=== PATIENT | male | born 1990 | race American Indian/Alaskan Native ===

== ENCOUNTER 2021-11-22 11:44 | Emergency (ER) | payer SELFPAY ==
--- NOTE | 2021-11-22 12:04 | Emergency Department Report ---
ED Chest Pain HPI - General Stated Complaint: SOB/CHEST PAIN/LT SIDE NUMBNESS PUI?: Yes Time Seen by Provider: 11/22/21 11:59 Source: patient Mode of arrival: Ambulatory Limitations: No Limitations - History of Present Illness Initial Comments: 31 yo comes to ER co chest pain worse with movement pain is sharp nausea sob no trauma thc only MD Complaint: chest pain Heart Score - HEART Score History: Slightly suspicious EKG: Normal Age: < 45 Risk factors: No known risk factors Troponin: < normal limit HEART Score: 0 - EKG Read Time Time EKG Completed: 12:00 EKG Read Time: 12:00 ED Review of Systems ROS: Stated complaint: SOB/CHEST PAIN/LT SIDE NUMBNESS Other details as noted in HPI Comment: All other systems reviewed and negative ED Past Medical Hx - Past Medical History Previous Medical History?: No - Surgical History Past Surgical History?: Yes - Family History Family history: no significant - Social History Smoking Status: Current Every Day Smoker Substance Use Type: Alcohol, Marijuana ED Physical Exam - General General appearance: alert, in no apparent distress - Head Head exam: Present: atraumatic, normocephalic - Eye Eye exam: Present: normal appearance - ENT ENT exam: Present: mucous membranes moist - Neck Neck exam: Present: normal inspection - Respiratory Respiratory exam: Present: normal lung sounds bilaterally. Absent: respiratory distress - Cardiovascular Cardiovascular Exam: Present: regular rate, normal rhythm. Absent: systolic murmur, diastolic murmur, rubs, gallop - GI/Abdominal GI/Abdominal exam: Present: soft, normal bowel sounds - Rectal Rectal exam: Present: deferred - Extremities Exam Extremities exam: Present: normal inspection - Back Exam Back exam: Present: normal inspection - Neurological Exam Neurological exam: Present: alert, oriented X3 - Psychiatric Psychiatric exam: Present: normal affect, normal mood - Skin Skin exam: Present: warm, dry, intact, normal color. Absent: rash Critical care attestation.: If time is entered above; I have spent that time in minutes in the direct care of this critically ill patient, excluding procedure time. ED Disposition Clinical Impression: Chest pain Disposition: 30 STILL A PATIENT Is pt being admited?: No Does the pt Need Aspirin: No Condition: Stable Instructions: Nonspecific Chest Pain, Adult Time of Disposition: 12:08
[2021-11-22 12:08] VITALS: BP 141/106
[2021-11-22 12:28] LABS: Basophils % (Auto) 0.3 % (0.0-1.8); Eosinophils # (Auto) 0.2 K/mm3 (0.0-0.4); Eosinophils % (Auto) 2.1 % (0.0-4.3); Hematocrit 47.6 % (35.5-45.6); Lymphocytes # (Auto) 1.4 K/mm3 (1.2-5.4); Lymphocytes % (Auto) 17.9 % (13.4-35.0); Mean Corpuscular HGB Conc 34 % (32-34); Mean Corpuscular Volume 90 fl (84-94); Monocytes # (Auto) 0.7 K/mm3 (0.0-0.8); Monocytes % (Auto) 8.5 % (0.0-7.3); Platelet Count 266 K/mm3 (140-440); Red Blood Count 5.26 M/mm3 (3.65-5.03)
[2021-11-22 12:52] LABS: Alanine Aminotransferase 30 units/L (7-56); Albumin 4.8 g/dL (3.9-5); BUN/Creatinine Ratio 12; Blood Urea Nitrogen 14 mg/dL (9-20); Calcium 9.6 mg/dL (8.4-10.2); Hemolysis Index 17
--- NOTE | 2021-11-22 12:56 | XRay Report ---
CHEST 2 VIEWS INDICATION / CLINICAL INFORMATION: Chest Pain. COMPARISON: None available. FINDINGS: SUPPORT DEVICES: None. HEART / MEDIASTINUM: No significant abnormality. LUNGS / PLEURA: No significant pulmonary or pleural abnormality. No pneumothorax. ADDITIONAL FINDINGS: No significant additional findings. IMPRESSION: 1. No acute findings. Signer Name: Manny Aguirre Jr, MD Signed: 11/22/2021 12:52 PM Workstation Name: [id number]
[2021-11-22] MEDS ORDERED: IBUPROFEN 800 MG TAB PO ONE (12:59)
[2021-11-22] MEDS ORDERED: HYDROcodone/ACETAMINOPHEN 5-325 MG TAB PO ONE (12:59)
--- NOTE | 2021-11-22 13:04 | Emergency Department Report ---
ED General Adult HPI - General Chief complaint: Chest Pain Stated complaint: SOB/CHEST PAIN/LT SIDE NUMBNESS PUI?: Yes Time Seen by Provider: 11/22/21 11:59 Source: patient Mode of arrival: Ambulatory Limitations: No Limitations - History of Present Illness Initial comments: 31-year-old male with no significant past medical history reports to the ER with complaints of chest pain to left-sided chest since yesterday afternoon. Patient reports no cardiac history patient reports increase in pain with movement to chest wall. Patient denies any shortness of breath, no dizziness, no weakness. Patient reports no heavy lifting pushing or pulling. Patient reports no exposure to any sick contacts. Patient reports worsening of chest pain with left arm movement. No other acute signs and symptoms reported. Severity scale (0 -10): 0 - Related Data Previous Rx's Medication Instructions Recorded Last Taken Type Ibuprofen [Motrin] 800 mg PO Q8HR PRN 6 Days #18 11/22/21 Unknown Rx tablet methOCARBAMOL [Robaxin TAB] 500 mg PO BID PRN 6 Days #12 tab 11/22/21 Unknown Rx Allergies Allergy/AdvReac Type Severity Reaction Status Date / Time No Known Allergies Allergy Verified 11/22/21 12:08 ED Review of Systems ROS: Stated complaint: SOB/CHEST PAIN/LT SIDE NUMBNESS Other details as noted in HPI Comment: All other systems reviewed and negative Cardiovascular: chest pain, palpitations. denies: dyspnea on exertion, edema, syncope ED Past Medical Hx - Past Medical History Previous Medical History?: No - Surgical History Past Surgical History?: Yes - Social History Smoking Status: Current Every Day Smoker Substance Use Type: Alcohol, Marijuana - Medications Home Medications: Home Medications Medication Instructions Recorded Confirmed Last Taken Type Ibuprofen [Motrin] 800 mg PO Q8HR PRN 6 Days #18 11/22/21 Unknown Rx tablet methOCARBAMOL [Robaxin TAB] 500 mg PO BID PRN 6 Days #12 tab 11/22/21 Unknown Rx ED Physical Exam - General Limitations: No Limitations General appearance: alert, in no apparent distress - Head Head exam: Present: atraumatic, normocephalic - Eye Eye exam: Present: normal appearance - ENT ENT exam: Present: mucous membranes moist - Neck Neck exam: Present: normal inspection - Respiratory Respiratory exam: Present: normal lung sounds bilaterally. Absent: respiratory distress - Cardiovascular Cardiovascular Exam: Present: regular rate, normal rhythm, other (Chest wall tenderness noted to the left side on palpation. No sternal chest pressure noted.). Absent: systolic murmur, diastolic murmur, rubs, gallop - GI/Abdominal GI/Abdominal exam: Present: soft, normal bowel sounds - Rectal Rectal exam: Present: deferred - Extremities Exam Extremities exam: Present: normal inspection - Back Exam Back exam: Present: normal inspection - Neurological Exam Neurological exam: Present: alert, oriented X3 - Psychiatric Psychiatric exam: Present: normal affect, normal mood - Skin Skin exam: Present: warm, dry, intact, normal color. Absent: rash ED Course Vital Signs 11/22/21 11/22/21 11/22/21 12:02 15:29 15:30 Temperature 98.0 F Pulse Rate 61 Respiratory 20 16 14 Rate Blood Pressure 141/106 [Right] O2 Sat by Pulse 98 Oximetry ED Medical Decision Making - Lab Data Result diagrams: 11/22/21 12:11 11/22/21 12:11 - EKG Data EKG shows normal: sinus rhythm Rate: normal - EKG Data When compared to previous EKG there are: previous EKG unavailable Interpretation: normal EKG - Radiology Data Radiology results: report reviewed [facility] [address] [place] [address] XRay Report Signed Patient: IWONA FORD MR#: [id number] : 1990 Acct:[id number] Age/Sex: 31 / M ADM Date: 11/22/21 Loc: ED Attending Dr: Ordering Physician: WOODROW DANIELLE Date of Service: 11/22/21 Procedure(s): XR chest routine 2V Accession Number(s): [id number] cc: WOODROW DANIELLE Fluoro Time In Minutes: CHEST 2 VIEWS INDICATION / CLINICAL INFORMATION: Chest Pain. COMPARISON: None available. FINDINGS: SUPPORT DEVICES: None. HEART / MEDIASTINUM: No significant abnormality. LUNGS / PLEURA: No significant pulmonary or pleural abnormality. No pneumothorax. ADDITIONAL FINDINGS: No significant additional findings. IMPRESSION: 1. No acute findings. Signer Name: Manny Rivero Jr, MD Signed: 11/22/2021 12:52 PM Workstation Name: [id number] Transcribed By: TTR Dictated By: MANNY RIVERO JR, MD Electronically Authenticated By: MANNY RIVERO JR, MD Signed Date/Time: 11/22/211251 DD/ 51 TD/TT - Medical Decision Making 31-year-old male with no significant past medical history reports to the ER with complaints of chest pain to left-sided chest since yesterday afternoon. Patient reports no cardiac history patient reports increase in pain with movement to chest wall. Patient denies any shortness of breath, no dizziness, no weakness. Patient reports no heavy lifting pushing or pulling. Patient reports no exposure to any sick contacts. Patient reports worsening of chest pain with left arm movement. No other acute signs and symptoms reported. On physical exam patient has left sided chest tenderness to chest wall on palpation. S1-S2 heard no abnormal heart sounds noted. No edema noted in lower extremities. Lungs are clear to auscultation. No other acute clinical signs noted. CBC with no acute process noted CMP with no acute process noted Troponin is negative Chest x-ray negative for any acute process noted. No acute changes noted on EKG patient is sinus rhythm Patient updated on lab results and x-ray findings and EKG. Patient informed that his pain his pain is due to muscular pain to his chest wall. Patient given oral medication here in the ER for pain. Patient to be sent home with oral medications Patient to follow-up primary care provider. Patient given referral to local primary care services. Patient agrees with plan of care verbalized understanding. Patient informed if symptoms are to get worse to report back to the ER for further evaluation. Vital Signs 11/22/21 12:02 Temperature 98.0 F Pulse Rate 61 Respiratory 20 Rate Blood Pressure 141/106 [Right] O2 Sat by Pulse 98 Oximetry Vital Signs 11/22/21 11/22/21 11/22/21 12:02 15:29 15:30 Temperature 98.0 F Pulse Rate 61 Respiratory 20 16 14 Rate Blood Pressure 141/106 [Right] O2 Sat by Pulse 98 Oximetry Labs 11/22/21 11/22/21 12:11 12:11 WBC 7.7 RBC 5.26 H Hgb 16.0 H Hct 47.6 H MCV 90 MCH 31 MCHC 34 RDW 13.0 L Plt Count 266 Lymph % (Auto) 17.9 [place] % (Auto) 8.5 H Eos % (Auto) 2.1 Baso % (Auto) 0.3 Lymph # (Auto) 1.4 [place] # (Auto) 0.7 Eos # (Auto) 0.2 Baso # (Auto) 0.0 Seg Neutrophils % 71.2 H Seg Neutrophils # 5.5 Sodium 142 Potassium 4.8 Chloride 106.7 Carbon Dioxide 24 Anion Gap 16 BUN 14 Creatinine 1.2 Estimated GFR > 60 BUN/Creatinine Ratio 12 Glucose 115 H Calcium 9.6 Total Bilirubin 0.50 AST 20 ALT 30 Alkaline Phosphatase 94 Troponin T < 0.010 Total Protein 6.9 Albumin 4.8 Albumin/Globulin Ratio 2.3 Critical care attestation.: If time is entered above; I have spent that time in minutes in the direct care of this critically ill patient, excluding procedure time. ED Disposition Clinical Impression: Chest wall pain, Non-cardiac chest pain Disposition: 01 HOME / SELF CARE / HOMELESS Is pt being admited?: No Condition: Stable Instructions: Nonspecific Chest Pain, Adult, Chest Wall Pain Prescriptions: Ibuprofen [Motrin] 800 mg PO Q8HR PRN 6 Days #18 tablet PRN Reason: Pain , Severe (7-10) methOCARBAMOL [Robaxin TAB] 500 mg PO BID PRN 6 Days #12 tab PRN Reason: muscle spasm Referrals: [facility] [Outside] - 3-5 Days [facility] [Outside] - 3-[address] [facility] [Outside] - 3-5 Days
--- NOTE | 2021-11-24 09:43 | Electrocardiograph Report ---
[facility] Test Date: 2021-11-22 Test Time: 11:56:19 Pat Name: IWONA FORD Department: Room: Gender: M Records Management Assistant: JAYY : 1990 Requested By: WOODROW DANIELLE Order Number: [id number] Reading MD: Brian Botello Measurements Intervals [place] Rate: 59 P: 65 ID: [id number] QRS: 71 QRSD: 98 T: 18 QT: 377 QTc: 373 Interpretive Statements Sinus rhythm ST elev, probable normal early repol pattern No previous ECG available for comparison Electronically Signed On 11-24-2021 9:43:30 EDT by Brian Botello
== END 2021-11-22 15:44 | disposition home or self-care (01) ==
LOC: ED 11:44
DX: R07.89 Other chest pain (principal); F17.200 Nicotine dependence, unspecified, uncomplicated; F12.90 Cannabis use, unspecified, uncomplicated; Z72.89 Other problems related to lifestyle
CPT/HCPCS: 36415; 71046; 80053; 84484; 85025; 93005; 99283